=== PATIENT | female | born 1995 | race Caucasian/White ===

== ENCOUNTER 2017-07-01 01:02 | Emergency (ER) | payer MEDICAID, OTHER ==
[~2017-07-01] VITALS: Ht 162.6 cm; Wt 125.0 kg
[2017-07-01 01:29] VITALS: BP 164/96; PULSE 101; RESP 20; TEMP 98.8; O2SAT 100
[2017-07-01] MEDS ORDERED: IBUPROFEN 600 MG TAB PO ONE (02:00)
[2017-07-01 02:06] LABS: BILIRUBIN, URINE NEG (NEG); BLOOD, URINE SMALL (NEG); GLUCOSE,URINE NEG (NEG); KETONE, URINE NEG (NEG); NITRITE,URINE NEG (NEG); PH, URINE 6.5 (5.0-8.5); SQUAMOUS EPITHELIAL CELL URINE 1 /hpf (0-5); TRANSITIONAL EPI CELLS, URINE <1 /hpf; URINE COLOR YELLOW (YELLW/STRAW); URINE LEUKOCYTE ESTERASE MOD (NEG)
[2017-07-01] MEDS ORDERED: CEPH-460 PO (02:22)
--- NOTE | 2017-07-01 02:25 | PD ---
HPI Chief Complaint: Abdominal Pain Time Seen by Provider: 01:51 Travel History International Travel<30 days: No Contact w/Intl Traveler<30days: No Traveled to known affect area: No History of Present Illness HPI Patient is a 22-year-old female presents emergency department for evaluation of metrorrhagia for the past few weeks. Patient states his been going on and off and she has a regular. Sometimes which are very heavy. Denies possibility for . She has not discussed this with an [employer] or other provider. She did tell triage that she was having a little bit of stomach pain intermittently in the right lower side and was wondering if she had an appendicitis. Her chief complaint to me however is the abnormal frequency and duration severity of flow. However this appears to be a chronic change. She denies any fevers denies any nausea vomiting diarrhea or constipation. States the symptoms are intermittent, mild, associated signs and duration as above PFSH Past Medical History Diminished Hearing: No Hypertension: Yes Sleep Apnea: Yes Tetanus Vaccination: Unknown Influenza Vaccination: No ?: Not LMP: 06/30/2017 Past Surgical History Surgical History: No Previous Surgery Social History Alcohol Use: No Tobacco Use: No Substance Use: No Allergies-Medications (Allergen,Severity, Reaction): Coded Allergies: No Known Allergies (Unverified , 07/01/17) Reported Meds & Prescriptions Reported Meds & Active Scripts Active Keflex (Cephalexin) 500 Mg Cap 500 Mg PO Q12H 5 Days Review of Systems Except as stated in HPI: all other systems reviewed are Neg Physical Exam Narrative GENERAL: Well-developed morbidly obese female in no obvious distress peer SKIN: Focused skin assessment warm/dry. HEAD: Atraumatic. Normocephalic. EYES: Pupils equal and round. No scleral icterus. No injection or drainage. ENT: No nasal bleeding or discharge. Mucous membranes pink and moist. NECK: Trachea midline. No JVD. CARDIOVASCULAR: Regular rate and rhythm. No murmur appreciated. RESPIRATORY: No accessory muscle use. Clear to auscultation. Breath sounds equal bilaterally. GASTROINTESTINAL: Abdomen soft, non-tender, nondistended. Hepatic and splenic margins not palpable. Rovsing sign negative, there is no tenderness throughout the entire abdomen, Rothman signs psoas and obturator signs negative, no CVA tenderness. GENITOURINARY: Declined by patient. MUSCULOSKELETAL: No obvious deformities. No clubbing. No cyanosis. No edema. NEUROLOGICAL: Awake and alert. No obvious cranial nerve deficits. Motor grossly within normal limits. Normal speech. PSYCHIATRIC: Appropriate mood and affect; insight and judgment normal. Data Data Last Documented VS Orders Orders Urinalysis - C+S If Indicated (07/01/17 01:37) Ed Urine Pregnancytest Poc (07/01/17 01:37) Ibuprofen (Motrin) (07/01/17 02:00) Urine Culture (07/01/17 01:45) Ed Discharge Order (07/01/17 02:26) Labs Laboratory Tests Test 07/01/17 01:45 Urine Color YELLOW Urine Turbidity CLEAR Urine pH 6.5 Urine Specific [place] 1.018 Urine Protein NEG mg/dL Urine Glucose (UA) NEG mg/dL Urine Ketones NEG mg/dL Urine Occult Blood SMALL Urine Nitrite NEG Urine Bilirubin NEG Urine Urobilinogen LESS THAN 2.0 MG/DL Urine Leukocyte Esterase MOD Urine RBC 1 /hpf Urine WBC 10 /hpf Urine Squamous Epithelial Cells 1 /hpf Urine Transitional Epithelial Cells <1 /hpf Microscopic Urinalysis Comment CULTURE INDICATED MDM Medical Decision Making Medical Screen Exam Complete: Yes Emergency Medical Condition: Yes Differential Diagnosis Menometrorrhagia, , UTI, PCOS, acute abdomen unlikely, acute appendicitis highly unlikely. Narrative Course Patient was room to the emergency department, her abdomen is benign, her conjunctivae have no pallor, I do not appreciate any medical emergency in this patient at this time, UA and UPT were sent to exclude as cause of her vaginal bleeding, test negative, there is some evidence of UTI, will be started on empiric antibiotics, discussed need follow-up with an [employer] return to ED criteria. There is no indication for blood work or imaging in this patient with a benign exam. Diagnosis Primary Impression: UTI (urinary tract infection) Additional Impression: Menometrorrhagia Referrals: Lisandro Brar MD Med/Other Pt SpecificInfo: Prescription(s) given Scripts Cephalexin (Keflex) 500 Mg Cap 500 MG PO Q12H for Infection for 5 Days, #10 CAP 0 Refills Prov: Raj Grewal MD 07/01/17 Disposition: 01 DISCHARGE HOME Condition: Stable Raj Grewal MD July 01, 2017 02:25
== END 2017-07-01 03:15 | disposition home or self-care (01) ==
LOC: NEPC 01:02
DX: N39.0 Urinary tract infection, site not specified (principal); N92.1 Excessive and frequent menstruation with irregular cycle; I10 Essential (primary) hypertension; G47.30 Sleep apnea, unspecified
CPT/HCPCS: 81001; 84703; 87086; 99283